=== PATIENT | female | born 1995 | race African-American/Black ===

== ENCOUNTER 2019-01-12 14:21 | Emergency (ER) | payer BC ==
[~2019-01-12] VITALS: Ht 160 cm; Wt 94.3 kg
[2019-01-12 14:35] VITALS: BP 131/57
[2019-01-12] MEDS ORDERED: IV NORMAL SALINE 1000ML BAG 1,000 ML IV ONE (15:15)
[2019-01-12] MEDS ORDERED: ACETAMINOPHEN 500 MG TABLET PO ONE (15:15)
[2019-01-12 15:22] LABS: BASO % 0 % (0-3); EOS % 0 % (0-3); HEMATOCRIT 37.1 % (36.0-47.0); HEMOGLOBIN 12.4 g/dL (12.0-15.5); LYMPH # 0.5 x10^3/uL (1.0-4.8); LYMPH % 5 % (24-48); MEAN CORPUSCULAR HEMOGLOBIN 27 pg (25-35); MEAN CORPUSCULAR HGB CONC 33 g/dL (31-37); MEAN CORPUSCULAR VOLUME 81 fL (79-100); MONO # 0.8 x10^3/uL (0.0-1.1); MONO % 9 % (0-9); NEUT # 8.2 x10^3uL (1.8-7.7); NEUT % 86 % (31-73); PLATELET COUNT 298 x10^3/uL (140-400); RED BLOOD COUNT 4.56 x10^6/uL (3.50-5.40); RED CELL DISTRIBUTION WIDTH 13.7 % (11.5-14.5); WHITE BLOOD COUNT 9.6 x10^3/uL (4.0-11.0)
[2019-01-12 15:32] LABS: CREATININE 0.6 mg/dL (0.6-1.0); GFR 151.3; POTASSIUM 3.4 mmol/L (3.5-5.1)
--- NOTE | 2019-01-12 15:40 | PHYS DOC ---
Past Medical History Past Medical History: No Pertinent History Past Surgical History: No Surgical History Alcohol Use: None Drug Use: None Adult General Chief Complaint Chief Complaint: FLU SYMPTOM HPI HPI Patient is a 23 year old AA female who presents to the ER with complaints of fever, body aches, fatigue, dry cough, nausea, and vomiting since yesterday. She reports that she never received a flu shot this year. Patient states she is 13 weeks . She denies any irregular vaginal discharge, vaginal bleeding , abdominal pain, pelvic pain, or back pain. In addition, patient complains of a headache, and a sore throat. Currently she rates her pain 5 out of 10 on the pain scale, there are no alleviating or aggravating factors. Review of Systems Review of Systems Constitutional: reports fever and body aches Eyes: Denies change in visual acuity, redness, or eye pain [] HENT: reports nasal congestion and sore throat [] Respiratory: Denies wheezing or shortness of breath; see HPI Cardiovascular: No additional information not addressed in HPI [] GI: Denies abdominal pain, or diarrhea; see HPI : Denies dysuria or hematuria [] Musculoskeletal: Denies back pain or joint pain; reports body aches [] Integument: Denies rash or skin lesions [] Neurologic: Denies focal weakness or sensory changes [] All other systems were reviewed and found to be within normal limits, except as documented in this note. Current Medications Current Medications Current Medications Medications (Trade) Dose Ordered Sig/Itzel Start Time Stop Time Status Last Admin Dose Admin Acetaminophen (Tylenol) 1,000 mg 1X ONCE 01/12/19 15:15 01/12/19 15:17 DC 01/12/19 15:25 1,000 MG Sodium Chloride 1,000 ml @ 1,000 mls/hr 1X ONCE 01/12/19 15:15 01/12/19 16:14 01/12/19 15:25 1,000 MLS/HR Allergies Allergies Allergies Coded Allergies Type Severity Reaction Last Updated Verified No Known Drug Allergies 01/12/19 No Physical Exam Physical Exam Constitutional: Well developed, well nourished, no acute distress, ill appearance. [] HENT: Normocephalic, atraumatic, bilateral external ears normal, posterior phayrnx normal, oropharynx moist, no oral exudates, nose normal. [] Eyes: PERRLA, conjunctiva injected, no discharge. [] Neck: Normal range of motion, no tenderness, supple, no stridor. [] Cardiovascular:Heart rate tachycardic rhythm, 2/6 LUSB murmur Lungs & Thorax: Bilateral breath sounds clear to auscultation [] Skin: Hot, flushed, dry, no rash. [] Extremities: No tenderness, no cyanosis, no clubbing, ROM intact, no edema. [] Neurologic: Alert and oriented X 3, normal motor function, normal sensory function, no focal deficits noted. [] Psychologic: Affect normal, judgement normal, mood normal. [] Current Patient Data Vital Signs Vital Signs Date Time Temp Pulse Resp B/P (MAP) Pulse Ox O2 Delivery O2 Flow Rate FiO2 01/12/19 14:35 101.1 106 18 131/57 (81) 99 Room Air 101.1 Lab Values Laboratory Tests Test 01/12/19 15:00 01/12/19 15:20 White Blood Count 9.6 x10^3/uL (4.0-11.0) Red Blood Count 4.56 x10^6/uL (3.50-5.40) Hemoglobin 12.4 g/dL (12.0-15.5) Hematocrit 37.1 % (36.0-47.0) Mean Corpuscular Volume 81 fL (79-100) Mean Corpuscular Hemoglobin 27 pg (25-35) Mean Corpuscular Hemoglobin Concent 33 g/dL (31-37) Red Cell Distribution Width 13.7 % (11.5-14.5) Platelet Count 298 x10^3/uL (140-400) Neutrophils (%) (Auto) 86 % (31-73) H Lymphocytes (%) (Auto) 5 % (24-48) L Monocytes (%) (Auto) 9 % (0-9) Eosinophils (%) (Auto) 0 % (0-3) Basophils (%) (Auto) 0 % (0-3) Neutrophils # (Auto) 8.2 x10^3uL (1.8-7.7) H Lymphocytes # (Auto) 0.5 x10^3/uL (1.0-4.8) L Monocytes # (Auto) 0.8 x10^3/uL (0.0-1.1) Eosinophils # (Auto) 0.0 x10^3/uL (0.0-0.7) Basophils # (Auto) 0.0 x10^3/uL (0.0-0.2) Segmented Neutrophils % 77 % (35-66) H Band Neutrophils % 8 % (0-9) Lymphocytes % 8 % (24-48) L Monocytes % 7 % (0-10) Platelet Estimate Adequate (ADEQUATE) Sodium Level 136 mmol/L (136-145) Potassium Level 3.4 mmol/L (3.5-5.1) L Chloride Level 100 mmol/L (98-107) Carbon Dioxide Level 24 mmol/L (21-32) Anion Gap 12 (6-14) Blood Urea Nitrogen 3 mg/dL (7-20) L Creatinine 0.6 mg/dL (0.6-1.0) Estimated GFR (Cockcroft-Gault) 151.3 Glucose Level 88 mg/dL (70-99) Calcium Level 9.0 mg/dL (8.5-10.1) Influenza Type A Antigen Positive (NEGATIVE) Influenza Type B Antigen Negative (NEGATIVE) Laboratory Tests 01/12/19 15:00 Laboratory Tests 01/12/19 15:00 EKG EKG [] Radiology/Procedures Radiology/Procedures [] Course & Med Decision Making Course & Med Decision Making Pertinent Labs and Imaging studies reviewed. (See chart for details) [] Dragon Disclaimer Dragon Disclaimer This electronic medical record was generated, in whole or in part, using a voice recognition dictation system. Departure Departure Impression: Primary Impression: Influenza A Additional Impression: Nausea and vomiting during prior to 22 weeks gestation Disposition: 01 HOME, SELF-CARE Condition: STABLE Referrals: UNKNOWN PCP NAME (PCP) Patient Instructions: Influenza A (H1N1), Nausea and Vomiting, [id number] Additional Instructions: Fill the prescriptions and take as directed. Tylenol as needed for fever. Recommend clear fluids for the next 24 hours. Then you may advance to bland foods such as bananas, rice, applesauce, and dry toast. Follow-up with your primary care doctor in the next 1-2 days. Return to the emergency room if your symptoms worsen. Scripts Ondansetron (ONDANSETRON ODT) 4 Mg Tab.rapdis 1 TAB PO PRN Q6-8HRS for 3 Days, #12 TAB 0 Refills Prov: ANAND PAYNE APRN 01/12/19 Oseltamivir Phosphate (TAMIFLU) 75 Mg Capsule 1 CAP PO BID, #10 CAP Prov: ANAND PAYNE APRN 01/12/19 Problem Qualifiers ANAND PAYNE APRN Jan 12, 2019 15:39
[2019-01-12 15:43] LABS: % BANDS 8 % (0-9); % LYMPHS 8 % (24-48); % MONOS 7 % (0-10); % SEGS 77 % (35-66)
[2019-01-12 15:44] LABS: PLT ESTIMATE ADEQUATE (ADEQUATE)
[2019-01-12 16:09] LABS: INFLUENZA A PATIENT POSITIVE (NEGATIVE); INFLUENZA B PATIENT NEGATIVE (NEGATIVE)
[2019-01-12] MEDS ORDERED: OSEL75CA PO (16:14)
[2019-01-12] MEDS ORDERED: ONDA4TAB12 PO (16:14)
== END 2019-01-12 16:28 | disposition home or self-care (01) ==
LOC: ER 14:21
DX: O98.511 Other viral diseases complicating pregnancy, first trimester (principal); O99.511 Diseases of the respiratory system complicating pregnancy, first trimester; J10.1 Influenza due to other identified influenza virus with other respiratory manifestations; O21.8 Other vomiting complicating pregnancy; Z3A.13 13 weeks gestation of pregnancy
CPT/HCPCS: 36415; 80048; 85007; 85025; 87804; 99283; J7030

== ENCOUNTER 2020-04-30 17:46 | Emergency (ER) | payer SELFPAY ==
[~2020-04-30] VITALS: Ht 160 cm; Wt 108.0 kg
[~2020-04-30 17:46] MED LIST: ONDA4TAB12 PO; OSEL75CA PO
[2020-04-30 18:42] VITALS: BP 131/57
--- NOTE | 2020-04-30 19:20 | RAD ---
KNEE RIGHT 3V 04/30/2020 6:19 PM INDICATION: Right knee pain COMPARISON: None available. TECHNIQUE: 3 views the right knee are provided. FINDINGS/ IMPRESSION: No significant knee joint effusion. There is no acute fracture or dislocation. Joint spaces are maintained. Bone mineralization is within normal limits. Regional soft tissues are within normal limits. There is no soft tissue gas or osseous erosion. No radiopaque foreign body. Electronically signed by: Alysa Baker MD (04/30/2020 7:17 PM) STEPHANIE
[2020-04-30] MEDS ORDERED: HYDR-2761 PO (19:30)
--- NOTE | 2020-04-30 19:30 | PHYS DOC ---
Past Medical History Past Medical History: No Pertinent History Past Surgical History: No Surgical History Smoking Status: Never Smoker Alcohol Use: None Drug Use: None General Adult EDM: Chief Complaint: KNEE INJURY HPI: HPI: Patient is a 24 year old female who presents to the emergency department with complaints of right anterior knee pain and swelling. She states that at approximately 1500 this afternoon she was bending over to get something and felt her knee go sideways. She reports that she has been unsteady on her feet since then and feels like her knee is going to give out. Patient denies any fall or direct trauma to the knee. She currently rates her pain a 10 out of 10 on the pain scale, the pain is worse with movement and palpation, she denies any alleviating factors or any radiation of the pain. Patient reports that her last menstrual cycle was in the middle of March she is not sure if she is . Review of Systems: Review of Systems: Constitutional: Denies fever or chills. [] GI: Denies abdominal pain, nausea, vomiting, or diarrhea. [] : Denies dysuria. [] Musculoskeletal: See HPI Integument: Denies rash. [] Neurologic: Denies headache, focal weakness or sensory changes. [] Psychiatric: Denies depression or anxiety. [] Heart Score: Risk Factors: Risk Factors: DM, Current or recent (<one month) smoker, HTN, HLP, family history of CAD, obesity. Risk Scores: Score 0 - 3: 2.5% MACE over next 6 weeks - Discharge Home Score 4 - 6: 20.3% MACE over next 6 weeks - Admit for Clinical Observation Score 7 - 10: 72.7% MACE over next 6 weeks - Early Invasive Strategies Allergies: Allergies: Allergies Coded Allergies Type Severity Reaction Last Updated Verified No Known Drug Allergies 01/12/19 No Physical Exam: PE: Constitutional: Well developed, well nourished, no acute distress, non-toxic appearance, obese. [] HENT: Normocephalic, atraumatic, bilateral external ears normal, nose normal. [] Eyes: PERRLA, EOMI, conjunctiva normal, no discharge. [] Neck: Normal range of motion, no stridor. [] Cardiovascular:Heart rate regular rhythm Lungs & Thorax: Respirations even and unlabored, no retractions, no respiratory distress Skin: Warm, dry, no erythema, no rash. [] Extremities: Right knee: 1+ edema, no crepitus, no obvious deformity of the right patella, no cyanosis, ROM limited due to pain Neurologic: Alert and oriented X 3, no focal deficits noted. [] Psychologic: Affect normal, judgement normal, mood normal. [] Current Patient Data: Labs: Laboratory Tests Test 04/30/20 18:41 POC Urine HCG, Qualitative Hcg negative (Negative) Vital Signs: Vital Signs Date Time Temp Pulse Resp B/P (MAP) Pulse Ox O2 Delivery O2 Flow Rate FiO2 04/30/20 18:42 98.6 71 18 131/57 (81) Room Air 98.6 EKG: EKG: [] Radiology/Procedures: Radiology/Procedures: PROCEDURE: KNEE RIGHT 3V KNEE RIGHT 3V 04/30/2020 6:19 PM INDICATION: Right knee pain COMPARISON: None available. TECHNIQUE: 3 views the right knee are provided. FINDINGS/ IMPRESSION: No significant knee joint effusion. There is no acute fracture or dislocation. Joint spaces are maintained. Bone mineralization is within normal limits. Regional soft tissues are within normal limits. There is no soft tissue gas or osseous erosion. No radiopaque foreign body. [] Course & Med Decision Making: Course & Med Decision Making Pertinent Labs and Imaging studies reviewed. (See chart for details) [] Dragon Disclaimer: Dragon Disclaimer: This electronic medical record was generated, in whole or in part, using a voice recognition dictation system. Departure Departure Impression: Primary Impression: Right knee pain Qualified Codes: M25.561 - Pain in right knee Disposition: 01 HOME, SELF-CARE Condition: STABLE Referrals: UNKNOWN PCP NAME (PCP) SAM ROBLES II, MD Patient Instructions: Knee Pain, [id number] Additional Instructions: Wear the knee immobilizer that was applied and use the crutches provided until follow-up with Dr. Robles. Fill the prescription and take it as directed for severe pain. Also recommend that you take ibuprofen 600 mg 4 times a day with food to help relieve your discomfort. Return to the ER if symptoms worsen. Scripts Hydrocodone Bit/Acetaminophen (HYDROCODONE-APAP 5-325 ) 1 Tab Tablet 1 TAB PO PRN Q6HRS PRN for PAIN for 3 Days, #10 TAB 0 Refills Prov: ANAND PAYNE APRN 04/30/20 Justicifation of Admission Dx: Justifications for Admission: Justification of Admission Dx: N/A Splinting Splinting : Location: Right knee Pre-Made Type: knee immobilizer Pre-Proc Neuro Vasc Exam: normal Post-Proc Neuro Vasc Exam: normal, unchanged from pre-exam ANAND PAYNE NURSING OFFICER Apr 30, 2020 19:30
[2020-04-30] MEDS ORDERED: HYDROcodone/APAP 5/325MG 1 TAB TABLET PO ONE (19:45)
== END 2020-04-30 19:55 | disposition home or self-care (01) ==
LOC: ER 17:46
DX: M25.561 Pain in right knee (principal); R60.0 Localized edema
CPT/HCPCS: 29505; 73562; 81025; 99283